=== PATIENT | male | born 1950 | race Caucasian/White ===

== ENCOUNTER 2016-08-19 20:22 | Inpatient (IN) | payer OTHER ==
[2016-08-19] MEDS ORDERED: ASPIRIN PO STA (20:24)
[2016-08-19] MEDS ORDERED: NITROGLYCERIN SL PRN (20:24)
[2016-08-19] MEDS ORDERED: ALBUTEROL NEB INH ONE ×2 (20:37→21:49)
[2016-08-19] MEDS ORDERED: DUONEB (A & A) INH ONE (20:37)
[2016-08-19] MEDS ORDERED: SOLU-MEDROL IV ONE (20:38)
--- NOTE | 2016-08-19 20:38 | PROVIDER DOCUMENTATION ---
HPI-Respiratory General <Ashutosh Caicedo - Last Filed: 08/19/16 21:50> - General Source: patient - History of Present Illness-Resp Severity in ED: reports: severe Onset/Duration: reports: 4 days ago Timing: reports: still present, getting worse Cough Quality/Degree: reports: moderate, productive cough, sputum Episode Frequency: chronic episodes Associated Symptoms: reports: cough, nasal congestion, nasal drainage, shortness of breath, short of breath, wheezing, other (loss of appetite). denies: flu-like symptoms, hurts to breathe, muscle/bodyaches <Yonny Mcdonald - Last Filed: 08/21/16 01:45> - General Chief Complaint: Shortness of Breath Stated Complaint: SOB Time Seen by Provider: 08/19/16 20:37 Allergies/Adverse Reactions: Patient Allergies Allergy/AdvReac Type Severity Reaction Status Date / Time No Known Allergies Allergy Verified 08/19/16 21:11 Home Medications: Home Medication List Medication Instructions Recorded Confirmed Last Taken Type Albuterol Sulfate Inhaler 2 puff INH Q6H PRN PRN 08/19/16 08/19/16 08/19/16 History [Ventolin Hfa] Montelukast Sodium [Singulair] 10 mg PO DAILY 08/19/16 08/19/16 08/19/16 History - History of Present Illness-Resp Nature of Presenting Problem: Pt is a 66 yom "pink puffer" who presents to ER with CC of shortness of breath. Pt has hx of COPD emphysema and reports that he has had difficulty breathing x3- 4 days. Pt reports that he is also having a moderately productive cough and nasal congestion. Pt is on 3-4L O2 at home, "depending on how I feel." ( Yonny Mcdonald) Review of Systems - Adult - REVIEW OF SYSTEMS - ADULT Constitutional: reports: fatique. denies: chills, fever, night sweats Eyes: reports: no symptoms reported Ears, Nose, Mouth & Throat: reports: no symptoms reported Cardiovascular: denies: chest pain, heart murmur, irregular heart rate, palpitations, poor circulation, syncope Respiratory: reports: chronic cough, cough, dyspnea on exertion, excessive sputum production, shortness of breath, wheezing. denies: hemoptysis, pleurisy Gastrointestinal: reports: poor appetite. denies: abdominal pain, constipation , diarrhea, nausea, vomiting Genitourinary: reports: no symptoms reported Musculoskeletal: reports: no symptoms reported Integumentary: reports: no symptoms reported Neurological: reports: no symptoms reported Psychiatric: reports: no symptoms reported Endocrine: reports: no symptoms reported Hematologic/Lymphatic: reports: no symptoms reported Allergic/Immunologic: reports: no symptoms reported All Other Systems: Reviewed and Negative <Yonny Mcdonald - Last Filed: 08/21/16 01:45> Past History - Adult - PAST MEDICAL HISTORY-ADULT Review of Records: reports: Nursing Assessment Review, Medications Reviewed Respiratory: reports: COPD (emphysema) - IMMUNIZATION STATUS Childhood Immunizations: See Nurse Assessment Flu Vaccine: See Nurse Assessment <Yonny Mcdonald - Last Filed: 08/21/16 01:45> Physical Exam-General - PHYSICAL EXAM-ADULT Initial Vital Signs Reviewed: Yes - CONSTITUTIONAL General Appearance: appears well, alert, moderate distress, cachetic, thin, anxious. negative: obese, obtunded, combative - RESPIRATORY Respiratory: chest non-tender, wheezing. negative: lungs clear, normal breath sounds - CARDIOVASCULAR Cardiovascular: normal peripheral pulses, tachycardia - NEUROLOGIC Neurologic: grossly normal, no motor/sensory deficits. negative: facial droop, focal weakness, motor weakness, sensory deficit - PSYCHIATRIC Psych/Mental Status: normal thought content, normal thought process, oriented x 3, anxious <Yonny Mcdonald - Last Filed: 08/21/16 01:45> Progress <Ashutosh Caicedo - Last Filed: 08/19/16 21:50> - REASSESSMENT Reassessment #1 Time Reassessed: 21:48 Status: other (Dr. Caicedo discussed result of pt's X-ray and POC to be another breathing treatment and amdit to hospitalist. Pt verbally acknowledged Dr. Harsha padilla's decision.) - XRAY 1 XRAY: Bilateral XRAY Study: Chest Impression: See EMR Report XRAY Interpretation: Pulmonary fibrosis; Possible RLL infiltrate? - CONSULTS/PCP/HOSPITALIST Notification #1 *Consult/PCP/Hospitalist*: Dr. Dan (Hospitalist) Time Discussed: 21:57 Consult Disposition: Admit <Yonny Mcdonald - Last Filed: 08/21/16 01:45> - PLAN OF CARE/RESULTS Progress/Plan/Lab Results: POC: ABG/IV 9885: Pt reports feeling a little better; Dr. Quang fuentes hospitalist; Vital Signs - 24 hr 08/19/16 08/19/16 20:36 21:02 Temperature 97.9 F Pulse Rate 116 H 116 H Respiratory 26 H 22 Rate Blood Pressure 118/64 O2 Sat by Pulse 100 Oximetry Orders Category Date Time Status Cardiac Monitoring DIRECTED Care 08/19/16 20:24 Active Saline Loc NOW Care 08/19/16 20:24 Active CHEST-1 VIEW [RAD] Stat Exams 08/19/16 20:24 Taken ABG [RESP] Routine Lab 08/19/16 21:00 Completed BLOOD CULTURE [BLDCUL] Stat Lab 08/19/16 20:45 Results CBC WITH ELECTRONIC DIFF [HEME] Stat Lab 08/19/16 20:45 Completed CK PROFILE [SP CHEM] Stat Lab 08/19/16 20:45 Completed COMPREHENSIVE METABOLIC PANEL [CHEM] Stat Lab 08/19/16 20:45 Completed D-DIMER [CHEM] Stat Lab 08/19/16 20:45 Completed LACTATE, PLASMA [CHEM] Stat Lab 08/19/16 20:45 Completed MAGNESIUM [CHEM] Stat Lab 08/19/16 20:45 Completed PRO B-NATRIURETIC PEPTIDE Stat Lab 08/19/16 20:45 Completed PROTIME WITH INR [COAG] Stat Lab 08/19/16 20:45 Completed PTT [COAG] Stat Lab 08/19/16 20:45 Completed TROPONIN T Stat Lab 08/19/16 20:45 Completed Albuterol 2.5MG/Ipratrop 0.5MG [Duoneb (A & A)] Med 08/19/16 20:37 Discontinued 3 ml INH NOW ONE Albuterol [Albuterol Neb] Med 08/19/16 20:37 Discontinued 5 mg INH NOW ONE Albuterol [Albuterol Neb] Med 08/19/16 21:49 Once 5 mg INH NOW ONE Aspirin Med 08/19/16 20:24 Discontinued 325 mg PO STAT STA Azithromycin 500 mg/Ns [Zithromax 500 mg/Ns] 250 ml Med 08/19/16 21:41 Active IV NOW CefTRIAXONE 1 GM/NS [Rocephin 1 gm/Ns] 50 ml Med 08/19/16 20:39 Discontinued IV NOW Methylprednisolone Sod Succ [Solu-Medrol] Med 08/19/16 20:38 Discontinued 125 mg IV NOW ONE Nitroglycerin Sl [Nitroglycerin] Med 08/19/16 20:24 Active 0.4 mg SL Q5M PRN PRN Aerosol Treatments Routine Oth 08/19/16 20:38 Completed Aerosol Treatments Routine Oth 08/19/16 21:49 Ordered Aerosol Treatments Stat Oth 08/19/16 20:38 Completed Aerosol Treatments Stat Oth 08/19/16 21:49 Ordered EKG [EKG] Stat Ther 08/19/16 20:24 Ordered Laboratory Tests 08/19/16 08/19/16 08/19/16 20:45 20:45 20:45 WBC 10.69 RBC 5.20 Hgb 14.9 Hct 43.7 MCV 84.0 MCH 28.7 MCHC 34.1 RDW Std Deviation 14.6 H Plt Count 349 MPV 9.6 Immature Gran % (Auto) 0.3 Neut % (Auto) 72.3 Lymph % (Auto) 7.8 L [place] % (Auto) 19.3 H Eos % (Auto) 0.1 Baso % (Auto) 0.2 Immature Gran # (Auto) 0.03 Neut # (Auto) 7.74 H Lymph # (Auto) 0.83 L [place] # (Auto) 2.06 H Eos # (Auto) 0.01 Baso # (Auto) 0.02 PT INR PTT (Actin FS) D-Dimer 0.29 Specimen Type Sample Site pH pCO2 pO2 HCO3 Base Excess Oxyhemoglobin ABG O2 Sat (Calculated) ABG O2 Saturation ABG Carboxyhemoglobin ABG Methemoglobin Jake Test A-a O2 Difference Total Hemoglobin Lactate Liter Flow Blood Gas Modality FiO2 % Sodium 135 L Potassium 3.5 Chloride 94 L Carbon Dioxide 23 L Anion Gap 18 BUN 5 L Creatinine 0.8 Estimated GFR/1.73 m2 > 60 BUN/Creatinine Ratio 6 Glucose 76 Calculated Osmolality 266 Calcium 9.1 Magnesium 1.9 Total Bilirubin 0.32 AST 20 ALT 14 Alkaline Phosphatase 82 Creatine Kinase 93 Troponin T Zev-U-Oqxdeaooxuw Pept Total Protein 7.3 Albumin 4.0 Globulin 3.3 Albumin/Globulin Ratio 1.2 Plasma Lactate 08/19/16 08/19/16 08/19/16 20:45 20:45 20:45 WBC RBC Hgb Hct MCV MCH MCHC RDW Std Deviation Plt Count MPV Immature Gran % (Auto) Neut % (Auto) Lymph % (Auto) [place] % (Auto) Eos % (Auto) Baso % (Auto) Immature Gran # (Auto) Neut # (Auto) Lymph # (Auto) [place] # (Auto) Eos # (Auto) Baso # (Auto) PT 10.5 INR 0.99 PTT (Actin FS) 28.1 D-Dimer Specimen Type Sample Site pH pCO2 pO2 HCO3 Base Excess Oxyhemoglobin ABG O2 Sat (Calculated) ABG O2 Saturation ABG Carboxyhemoglobin ABG Methemoglobin Jake Test A-a O2 Difference Total Hemoglobin Lactate Liter Flow Blood Gas Modality FiO2 % Sodium Potassium Chloride Carbon Dioxide Anion Gap BUN Creatinine Estimated GFR/1.73 m2 BUN/Creatinine Ratio Glucose Calculated Osmolality Calcium Magnesium Total Bilirubin AST ALT Alkaline Phosphatase Creatine Kinase Troponin T < 0.010 Siy-[id number]-Fnvfmdmzpok Pept 974 H Total Protein Albumin Globulin Albumin/Globulin Ratio Plasma Lactate 08/19/16 08/19/16 20:45 21:00 WBC RBC Hgb Hct MCV MCH MCHC RDW Std Deviation Plt Count MPV Immature Gran % (Auto) Neut % (Auto) Lymph % (Auto) [place] % (Auto) Eos % (Auto) Baso % (Auto) Immature Gran # (Auto) Neut # (Auto) Lymph # (Auto) [place] # (Auto) Eos # (Auto) Baso # (Auto) PT INR PTT (Actin FS) D-Dimer Specimen Type ARTERIAL Sample Site R RADIAL pH 7.45 pCO2 35 pO2 90 HCO3 25.5 Base Excess 0.8 Oxyhemoglobin 95.6 ABG O2 Sat (Calculated) 20.5 ABG O2 Saturation 99.5 ABG Carboxyhemoglobin 2.70 H ABG Methemoglobin 1.2 Jake Test YES A-a O2 Difference 151.0 Total Hemoglobin 15.2 Lactate 1.60 Liter Flow 5.0 Blood Gas Modality CANNULA FiO2 % 40.0 Sodium Potassium Chloride Carbon Dioxide Anion Gap BUN Creatinine Estimated GFR/1.73 m2 BUN/Creatinine Ratio Glucose Calculated Osmolality Calcium Magnesium Total Bilirubin AST ALT Alkaline Phosphatase Creatine Kinase Troponin T Kdq-B-Srlanuzzawo Pept Total Protein Albumin Globulin Albumin/Globulin Ratio Plasma Lactate 2.2 (Yonny Mcdonald) Departure - Departure Time of Disposition Order: 21:51 Certified Medical Emergency: Emergent <Ashutosh Caicedo - Last Filed: 08/19/16 21:50> - Departure Time of Disposition Order: 23:06 Certified Medical Emergency: Emergent <Yonny Mcdonald - Last Filed: 08/21/16 01:45> - Departure DIAGNOSIS: Acute exacerbation of COPD with asthma Pneumonia Qualifiers: Pneumonia type: due to unspecified organism Laterality: right Lung location: lower lobe of lung Qualified Code(s): J18.1 - Lobar pneumonia, unspecified organism Disposition: ADMITTED INPATIENT 09 Condition: Fair Attestation - Scribe Verification/Attestation Scribe:: Yonny Mcdonald Acting as Scribe for:: Ashutosh Caicedo Scribe documention review:: This chart was documented by a scribe and accurately reflects the service the provider performed and the decisions made by the provider. <Yonny Mcdonald - Last Filed: 08/21/16 01:45> Physician Attestation
[2016-08-19] MEDS ORDERED: ROCEPHIN 1 GM/NS 50 ML IV ONE (20:39)
[2016-08-19 20:57] LABS: MANUAL DIFF NEEDED? NO
[2016-08-19 21:03] LABS: BASO% 0.2 % (0.0-0.8); EOS# 0.01 X1000 (0.0-0.7); EOS% 0.1 % (0.0-10.0); HEMATOCRIT 43.7 % (42.0-52.0); HEMOGLOBIN 14.9 g/dL (14.0-18.0); IMM GRAN# 0.03 X1000 (0.0-0.04); IMM GRAN% 0.3 % (0.0-0.5); LYMPH# 0.83 X1000 (1.2-3.4); LYMPH% 7.8 % (20.5-51.1); MCH 28.7 PG (27-31); MCHC 34.1 g/dL (33-37); MONO# 2.06 X1000 (0.11-0.59); MONO% 19.3 % (1.7-9.3); MPV 9.6 FL (7.4-10.4); NEUT% 72.3 % (42.2-75.2); PLT 349 X1000 (130-400)
[2016-08-19 21:09] LABS: ALLEN TEST YES; BE 0.8 mmoll (-3.0-3.0); BLOOD TYPE ARTERIAL; DRAW SITE R RADIAL; METHB 1.2 % (0.0-1.5); O2(CT) 20.5 mL/dL (15.0-23.0); PCO2(98.6) 35 mmHg (35-45); PO2(98.6) 90 mmHg (60-100); SAMPLE BLOOD; SAO2 99.5 % (95.0-100.0); THB 15.2 g/dL (11.5-17.4); pH(98.6) 7.45 (7.35-7.45)
[2016-08-19 21:10] LABS: INR 0.99; PROTIME 10.5 Seconds (9.2-11.7); PTT 28.1 Seconds (22.0-36.0)
[2016-08-19 21:10] LABS: MODALITY CANNULA
[2016-08-19 21:24] LABS: AGAP 18; ALKALINE PHOSPHATASE 82 U/L (32-122); BUN 5 mg/dL (8-22); CALCIUM 9.1 mg/dL (8.8-10.2); CHLORIDE 94 mmol/L (98-107); CK PROFILE 93 U/L (24-204); COSMO 266; GOT 20 U/L (10-34); GPT 14 U/L (10-44); MAGNESIUM 1.9 mg/dL (1.5-2.7); POTASSIUM 3.5 mmol/L (3.5-5.1); SODIUM 135 mmol/L (136-145); TCO2 23 mmol/L (25-35); TOTAL BILIRUBIN 0.32 mg/dL (0.20-1.00); TOTAL PROTEIN 7.3 g/dL (6.3-8.3)
[2016-08-19] MEDS ORDERED: ZITHROMAX 500 MG/NS 250 ML IV ONE (21:41)
[2016-08-19] MEDS ORDERED: NICODERM PATCH TD ONE (21:49)
--- NOTE | 2016-08-19 22:22 | ED EKG INTERP ---
EKG Interpretation - EKG Time of EKG reading by physician:: 20:33 EKG Read and Signed by:: Ashutosh Caicedo EKG Interpretation (*Must complete 3 of following elements*): Abnormal (Low voltage QRS; Cannot rule out Anteroseptal infarct, age undetermined; T wave abnormality, consider inferior ischemia; Prolonged QT) Rate: 115 Rhythm: Sinus tachycardia with premature supraventricular complexes Attestation - Scribe Verification/Attestation Scribe:: Yonny Mcdonald Acting as Scribe for:: Ashutosh Caicedo Scribe documention review:: This chart was documented by a scribe and accurately reflects the service the provider performed and the decisions made by the provider.
--- NOTE | 2016-08-19 22:50 | HISTORY AND PHYSICAL ---
PRIMARY CARE PHYSICIAN: Keith Zepeda MD CHIEF COMPLAINT: Shortness of breath. HISTORY OF PRESENT ILLNESS: This is a 66-year-old male with past medical history of advanced COPD, who presented to the Emergency Department complaining of shortness of breath. He reports that he noticed this problem for the last 3-4 days. The patient denies any fever or chills. He reports also productive cough whitish and nasal congestion as well. Patient is on home oxygen 3-4 L at home. He was using his breathing at home, but because the shortness of breath was still present, he decided to come to the emergency department. He is being admitted to the hospital for further treatment. PAST MEDICAL HISTORY: 1. COPD. 2. Active smoker. PAST SURGICAL HISTORY: None. ALLERGIES: No known drug allergies. SOCIAL HISTORY: He reports still smoking approximately 1 pack per day but he was not able to smoke for the last 2 days. So, patient reports that he is going to quit. He denies drinking alcohol or using illicit drugs. FAMILY HISTORY: Noncontributory. PHYSICAL EXAMINATION: VITALS: Temperature 97.9, heart rate 115, respiratory rate 30, blood pressure 107/67, O2 saturation 94% on 4 L nasal cannula. GENERAL EXAMINATION: This is a chronically ill-looking, and in mild respiratory distress 66-year- old, male, lying in bed. HEENT: Head is normocephalic, atraumatic. Anicteric sclerae and pale conjunctivae. Mucous membranes moist. Pupils equal, round, and reactive to light and accommodation. NECK: Supple. No JVD noted. No carotid bruits. No lymphadenopathy. No thyromegaly. CARDIOVASCULAR: S1, S2 heard. Tachycardic. No murmurs, gallops, or rubs. Regular rate and rhythm. RESPIRATORY: Decreased breath sounds globally with wheezing all over pulmonary lowe. Patient is using some accessory muscles. ABDOMEN: Soft, nontender to palpation. Bowel sounds present. No organomegaly. EXTREMITIES: No clubbing, cyanosis, or edema. Peripheral pulses present in both legs. NEUROLOGICAL: Patient alert and oriented x3. Able to move 4 extremities. Cranial nerves II-XII are grossly normal. LABORATORY DATA: The CBC, ABG was completely normal as well as the BMP as well. ASSESSMENT AND PLAN: 1. Chronic obstructive pulmonary disease exacerbation. 2. Pneumonia suspected. PLAN: 1. Patient is going to be admitted to the hospital for chronic obstructive pulmonary disease exacerbation most probably likely to community-acquired pneumonia. Just to have a better visualization of the lung parenchyma, we are going to order a computed tomography of the chest. In any case, we are going to start him on intravenous antibiotics, in this case, ceftriaxone and azithromycin. We will provide also breathing treatment with DuoNebs every 4 hours as schedule and Solu-Medrol 40 mg intravenously q.8 hours as well. Also we are going to start this patient considering his advanced chronic obstructive pulmonary disease on Spiriva 1 inhalation daily. 2. Tomorrow his primary care doctor, Keith Zepeda MD will resume care.
[2016-08-19] MEDS ORDERED: NS 1,000 ML IV SCH (23:50)
[2016-08-19] MEDS ORDERED: DUONEB (A & A) INH PRN (23:50)
[2016-08-19] MEDS ORDERED: ZOFRAN IV PRN (23:50)
[2016-08-20] MEDS: DUONEB (A & A) INH SCH ×7 (00:37→22:49)
[2016-08-20] MEDS: LOVENOX SUBQ SCH ×2 (00:42→20:53)
[2016-08-20 05:04] LABS: ALLEN TEST YES; BE -2.2 mmoll (-3.0-3.0); BLOOD TYPE ARTERIAL; DRAW SITE R RADIAL; METHB 1.4 % (0.0-1.5); O2(CT) 18.7 mL/dL (15.0-23.0); PCO2(98.6) 37 mmHg (35-45); PO2(98.6) 131 mmHg (60-100); SAMPLE BLOOD; SAO2 99.1 % (95.0-100.0); THB 13.7 g/dL (11.5-17.4); pH(98.6) 7.39 (7.35-7.45)
[2016-08-20 05:05] LABS: MODALITY CANNULA
--- NOTE | 2016-08-20 06:18 | Diag Imaging Result Document ---
PROCEDURE NAME: CT THORAX W/CONTRAST - 08/19/2016 CT CHEST WITH INTRAVENOUS CONTRAST: FINDINGS: No pleural effusions. No thoracic aortic aneurysm or dissection. No cardiomegaly. Chronic coronary artery calcifications in the left anterior descending artery. The pulmonary arteries are distended. Normal opacification of the pulmonary arteries and the proximal branches. Slightly prominent mediastinal and right hilar lymph nodes. There is severe emphysema. Increased markings in the apices believed to be fibrosis. Likely fibrosis or atelectasis posteriorly and laterally in the right middle lobe although there could be a tiny underlying infiltrate. No other infiltrates. IMPRESSION: 1. Severe emphysema. 2. Pulmonary arterial hypertension. 3. Likely fibrosis and atelectasis rather than pneumonia. 4. Slightly prominent mediastinal and right hilar lymph nodes. 5. Limited images through the upper abdomen reveal fatty infiltration of the liver. A preliminary report was given at 12 o'clock
[2016-08-20] MEDS: PRILOSEC PO SCH (06:26)
[2016-08-20 07:19] LABS: EOS# 0.03 X1000 (0.0-0.7); EOS% 0.4 % (0.0-10.0); HEMOGLOBIN 14.1 g/dL (14.0-18.0); LYMPH# 0.28 X1000 (1.2-3.4); LYMPH% 3.9 % (20.5-51.1); MANUAL DIFF NEEDED? YES; MCH 28.5 PG (27-31); MCHC 33.6 g/dL (33-37); MCV 84.8 FL (81-99); MONO# 0.21 X1000 (0.11-0.59); MONO% 2.9 % (1.7-9.3); NEUT% 92.8 % (42.2-75.2); PLT 321 X1000 (130-400); RBC 4.95 XMIL (4.7-6.1)
[2016-08-20 07:25] LABS: AGAP 16; BUN 9 mg/dL (8-22); CHLORIDE 100 mmol/L (98-107); COSMO 281; SODIUM 140 mmol/L (136-145); TCO2 24 mmol/L (25-35)
--- NOTE | 2016-08-20 07:41 | EKG Report ---
Test Performed on : 08/19/2016 8:33:13 PM Test Reason : Ordered Cancelled/Re-Ordered/CP Blood Pressure : / mmHG Vent. Rate : 115 BPM Atrial Rate : 115 BPM P-R Int : 124 ms QRS Dur : 080 ms QT Int : 486 ms P-R-T Axes : 099 -01 268 degrees QTc Int : 672 ms Sinus tachycardia. with premature supraventricular complexes. Low voltage QRS Cannot rule out Anteroseptal infarct (cited on or before 15-JUL-2016) T wave abnormality, consider inferior ischemia Prolonged QT Abnormal ECG When compared with ECG of 15-JUL-2016 18:37, premature supraventricular complexes. are now present ST now depressed in Inferior leads T wave inversion now evident in Inferior leads Unconfirmed Result
[2016-08-20 08:42] LABS: LYMPHS 4 % (21-51); MONO 2 % (1-9)
--- NOTE | 2016-08-20 09:20 | Diag Imaging Result Document ---
PROCEDURE NAME: CHEST-1 VIEW - 08/19/2016 PORTABLE CHEST X-RAY, 08/19/2016: COMPARISON: 07/15/2016. FINDINGS: Stable severe COPD with pulmonary scarring. No obvious infiltrates. Heart size is top normal. IMPRESSION: Severe COPD with pulmonary scarring.
[2016-08-20] MEDS: SINGULAIR PO SCH (09:42)
[2016-08-20] MEDS: ROCEPHIN 1 GM/NS 50 ML IV SCH (20:52)
[2016-08-20] MEDS ORDERED: ZITHROMAX 500 MG/NS 250 ML IV SCH (23:00)
[2016-08-20] MEDS: ZITHROMAX 500 MG/NS 250 ML IV SCH (23:08)
[2016-08-21] MEDS: LOVENOX SUBQ SCH ×3 (00:13→22:45)
[2016-08-21] MEDS: DUONEB (A & A) INH SCH ×6 (03:27→23:21)
[2016-08-21] MEDS: SOLU-MEDROL IV SCH ×3 (06:00→21:18)
[2016-08-21] MEDS: PRILOSEC PO SCH (06:00)
[2016-08-21 07:22] LABS: MANUAL DIFF NEEDED? NO
[2016-08-21 07:54] LABS: BASO% 0.2 % (0.0-0.8); EOS# 0.02 X1000 (0.0-0.7); EOS% 0.2 % (0.0-10.0); HEMATOCRIT 42.3 % (42.0-52.0); HEMOGLOBIN 13.9 g/dL (14.0-18.0); IMM GRAN# 0.02 X1000 (0.0-0.04); IMM GRAN% 0.2 % (0.0-0.5); LYMPH# 1.64 X1000 (1.2-3.4); LYMPH% 14.5 % (20.5-51.1); MCH 27.9 PG (27-31); MCHC 32.9 g/dL (33-37); MCV 84.8 FL (81-99); MONO# 1.79 X1000 (0.11-0.59); MONO% 15.9 % (1.7-9.3); MPV 10.1 FL (7.4-10.4); PLT 328 X1000 (130-400); RBC 4.99 XMIL (4.7-6.1)
[2016-08-21 07:56] LABS: AGAP 15; BUN 10 mg/dL (8-22); CALCIUM 8.3 mg/dL (8.8-10.2); CHLORIDE 103 mmol/L (98-107); CK PROFILE 146 U/L (24-204); COSMO 281; POTASSIUM 3.3 mmol/L (3.5-5.1); SODIUM 141 mmol/L (136-145); TCO2 23 mmol/L (25-35)
[2016-08-21] MEDS: SPIRIVA INH SCH (07:59)
[2016-08-21] MEDS ORDERED: KLOR-CON PO ONE (08:17)
[2016-08-21] MEDS: SINGULAIR PO SCH (10:24)
[2016-08-21] MEDS: BREO ELLIPTA 100/25 MCG INH INH SCH (11:34)
--- NOTE | 2016-08-21 13:42 | EKG Report ---
Test Performed on : 08/21/2016 10:00:17 AM Test Reason : cp Blood Pressure : / mmHG Vent. Rate : 095 BPM Atrial Rate : 095 BPM P-R Int : 132 ms QRS Dur : 092 ms QT Int : 322 ms P-R-T Axes : 075 022 086 degrees QTc Int : 404 ms Sinus rhythm. with occasional premature ventricular complexes. and premature atrial complexes. Low voltage QRS Cannot rule out Anteroseptal infarct (cited on or before 15-JUL-2016) T wave abnormality, consider inferior ischemia Abnormal ECG When compared with ECG of 19-AUG-2016 20:33, premature ventricular complexes. are now present ST no longer depressed in Inferior leads Non-specific change in ST segment in Anterior leads T wave inversion now evident in Anterior leads Confirmed by Desmond Navarrete MD ([id number]) on 08/21/2016 9:56:36 PM
[2016-08-21] MEDS ORDERED: AYR NASAL SPRAY NAS PRN (20:53)
[2016-08-21] MEDS: ROCEPHIN 1 GM/NS 50 ML IV SCH (21:18)
[2016-08-21] MEDS: ZITHROMAX 500 MG/NS 250 ML IV SCH (22:44)
[2016-08-22] MEDS: DUONEB (A & A) INH SCH ×6 (03:33→23:43)
[2016-08-22] MEDS: SOLU-MEDROL IV SCH ×3 (05:04→20:03)
[2016-08-22] MEDS: PRILOSEC PO SCH (07:45)
[2016-08-22] MEDS: BREO ELLIPTA 100/25 MCG INH INH SCH (07:59)
[2016-08-22 08:00] LABS: AGAP 12; BUN 8 mg/dL (8-22); CALCIUM 8.6 mg/dL (8.8-10.2); CHLORIDE 102 mmol/L (98-107); COSMO 276; POTASSIUM 4.1 mmol/L (3.5-5.1); SODIUM 138 mmol/L (136-145); TCO2 24 mmol/L (25-35)
[2016-08-22] MEDS: SPIRIVA INH SCH (08:00)
[2016-08-22] MEDS: SINGULAIR PO SCH (08:57)
[2016-08-22] MEDS: ROCEPHIN 1 GM/NS 50 ML IV SCH (20:05)
[2016-08-23] MEDS: LOVENOX SUBQ SCH ×2 (01:36→22:59)
[2016-08-23] MEDS: ZITHROMAX 500 MG/NS 250 ML IV SCH ×2 (01:36→22:58)
[2016-08-23] MEDS: DUONEB (A & A) INH SCH ×6 (03:20→22:55)
[2016-08-23] MEDS: SOLU-MEDROL IV SCH ×3 (04:30→21:15)
[2016-08-23] MEDS: PRILOSEC PO SCH (06:31)
[2016-08-23] MEDS ORDERED: ALBUTEROL NEB ONE (07:48)
[2016-08-23] MEDS: SINGULAIR PO SCH (09:20)
[2016-08-23] MEDS: BREO ELLIPTA 100/25 MCG INH INH SCH (11:45)
[2016-08-23] MEDS: SPIRIVA INH SCH (11:46)
[2016-08-23] MEDS: ROCEPHIN 1 GM/NS 50 ML IV SCH (21:14)
[2016-08-24] MEDS: DUONEB (A & A) INH SCH ×4 (03:22→16:03)
[2016-08-24] MEDS: SOLU-MEDROL IV SCH ×2 (05:27→12:27)
[2016-08-24] MEDS: PRILOSEC PO SCH (06:13)
[2016-08-24] MEDS: BREO ELLIPTA 100/25 MCG INH INH SCH (07:35)
[2016-08-24] MEDS: SPIRIVA INH SCH (07:35)
[2016-08-24 08:16] VITALS: BP 115/73
[2016-08-24] MEDS: SINGULAIR PO SCH (08:40)
[2016-08-24] MEDS ORDERED: FLUZONE QUAD 2016-2017 SYRINGE IM ONE (08:56)
[2016-08-24] MEDS ORDERED: PNEUMOVAX 23 IM ONE (08:56)
--- NOTE | 2016-08-25 11:04 | DISCHARGE SUMMARY ---
ADMISSION DATE: 08/19/2016 DISCHARGE DATE: 08/24/2016 DISCHARGING DIAGNOSES: 1. Acute Chronic obstructive pulmonary disease exacerbation. 2. History of coronary artery disease. 3. History of noncompliance. HISTORY: Please see the H and P that was done by hospitalist. In brief he is a 66-year-old, white gentleman with severe COPD. Recent pulmonary function tests, FEV1/FVC 0.58 predicted, FEV1 is 36% with maximum ventilations report is only 28%. Dependent on oxygen, on nebulizers and also history of CAD with stents x2. Came in with chest pain, shortness of breath, and wheezing. The patient was started on oxygen, bronchodilators, IV steroids, IV antibiotics. EKG as a part of the chest pain sinus rhythm with Q-waves in the anterior leads and PVCs. Nothing acute. During this hospital admission patient has a CT chest showed severe COPD, pulmonary artery hypertension, fibrosis, atelectasis and fatty liver. Pulmonary function tests consistent COPD. LABS: During this admission as follows: White cell count 11, hematocrit 42, platelet count 328,000. ABG: PH is 7.39, pCO2 37, PO2 of 90 on 40%. SMA 7 is normal. Cardiac enzymes were normal. ProBNP 700. At the time of discharge, patient is stable. Discharged home with the following instructions. Flu vaccine 08/24/2016, pneumonia 08/24/2016. Ventolin HFA q.6 as needed, Singulair 10 mg daily. Breo 1 puff daily, Prilosec 40 daily, nasal spray as needed, Spiriva 1 puff at nighttime, Levaquin 500 daily, Medrol Dosepak and follow up in my office next week.
== END 2016-08-24 16:28 | disposition home or self-care (01) | DRG 191 ==
LOC: ED 20:22 → 3N 23:06
PROVIDERS: ADMIT Internal Medicine; ATTEND Internal Medicine
DX: J44.1 Chronic obstructive pulmonary disease with (acute) exacerbation (principal); R64 Cachexia; I27.2 Other secondary pulmonary hypertension; Z99.81 Dependence on supplemental oxygen; J84.10 Pulmonary fibrosis, unspecified; J98.11 Atelectasis; K76.0 Fatty (change of) liver, not elsewhere classified; F17.210 Nicotine dependence, cigarettes, uncomplicated; J45.909 Unspecified asthma, uncomplicated; R94.31 Abnormal electrocardiogram [ECG] [EKG]; I25.10 Atherosclerotic heart disease of native coronary artery without angina pectoris; Z91.19 Patient's noncompliance with other medical treatment and regimen; Z95.5 Presence of coronary angioplasty implant and graft; Z23 Encounter for immunization; Z79.899 Other long term (current) drug therapy
CPT/HCPCS: 71010; 71260; 80048; 80053; 82550; 82805; 83605; 83735; 83880; 84484; 85025; 85379; 85610; 85730; 87040; 90732; 93005; 93010; 94060; 94375; 94640; 94729; 94760; 94761; 96365; 96367; 96375; J0456; J0696; J1650; J2920; J2930; J7030; Q2038; Q9967

== ENCOUNTER 2017-03-03 20:28 | Inpatient (IN) ==
[2017-03-03] MEDS ORDERED: CARDIZEM IV ONE ×2 (20:40→20:50)
[2017-03-03] MEDS ORDERED: NS 2,000 ML ONE (20:40)
[2017-03-03 20:59] LABS: MANUAL DIFF NEEDED? NO
[2017-03-03] MEDS ORDERED: VERSED ONE (21:03)
[2017-03-03 21:07] LABS: BASO% 0.1 % (0.0-0.8); EOS# 0.04 X1000 (0.0-0.7); EOS% 0.2 % (0.0-10.0); HEMATOCRIT 40.4 % (42.0-52.0); HEMOGLOBIN 13.6 g/dL (14.0-18.0); IMM GRAN# 0.07 X1000 (0.0-0.04); IMM GRAN% 0.4 % (0.0-0.5); LYMPH# 3.64 X1000 (1.2-3.4); LYMPH% 19.3 % (20.5-51.1); MCH 28.5 PG (27-31); MCHC 33.7 g/dL (33-37); MCV 84.5 FL (81-99); MONO# 2.85 X1000 (0.11-0.59); MONO% 15.1 % (1.7-9.3); MPV 9.6 FL (7.4-10.4); NEUT% 64.9 % (42.2-75.2); PLT 241 X1000 (130-400); RBC 4.78 XMIL (4.7-6.1)
[2017-03-03] MEDS: VERSED IV ONE ×3 (21:09→21:13)
[2017-03-03 21:15] LABS: INR 0.93; PROTIME 9.7 Seconds (9.2-11.7); PTT 23.6 Seconds (22.0-36.0)
[2017-03-03 21:25] LABS: AGAP 12; ALBUMIN 3.5 g/dL (3.5-5.0); ALKALINE PHOSPHATASE 60 U/L (32-122); BUN 18 mg/dL (8-22); CALCIUM 7.5 mg/dL (8.8-10.2); CHLORIDE 103 mmol/L (98-107); CK PROFILE 99 U/L (24-204); COSMO 276; GOT 18 U/L (10-34); GPT 21 U/L (10-44); POTASSIUM 3.7 mmol/L (3.5-5.1); SODIUM 137 mmol/L (136-145); TCO2 22 mmol/L (25-35); TOTAL BILIRUBIN 0.23 mg/dL (0.20-1.00); TOTAL PROTEIN 5.9 g/dL (6.3-8.3)
[2017-03-03] MEDS ORDERED: NS 1,000 ML IV ONE (21:32)
[2017-03-03] MEDS ORDERED: NS 2,000 ML IV ONE (21:33)
[2017-03-03] MEDS ORDERED: CARDIZEM 100 MG/NS 100 MG/100 ML IVPB IV SCH (22:00)
--- NOTE | 2017-03-03 22:06 | ED EKG INTERP ---
This chart was entered by Taylor Mclaughlin Scribe, acting as scribe for Cruz Landers MD. EKG Interpretation - EKG Time of EKG reading by physician:: 20:21 EKG Read and Signed by:: Cruz Landers EKG Interpretation (*Must complete 3 of following elements*): Abnormal Rate: 180 Rhythm: a-fib with RVR [place]: normal QRS: normal ND Interval: normal ST Wave: normal Comments: anteroseptal infarct, age undetermined - EKG # 2 Time of EKG reading by physician:: 21:09 EKG Read and Signed by:: Cruz Landers EKG Interpretation (*Must complete 3 of following elements*): Abnormal Rate: 96 Rhythm: sinus rhythm with premature supraventricular complexes [place]: normal QRS: other (low voltage) ND Interval: normal ST Wave: normal Comments: septal infarct, age undetermined Attestation - Physician/ KELLEE Attestation Patient care was provided by Advanced Practice Provider:: No The physician spent face to face time with patient:: Yes Advanced Practice Provider documentation review:: Supervising physician onsite and consulted in the evaluation and care of this patient. The physician did have a face to face encounter with the patient. This chart was documented by the indicated scribe, (Taylor Mclaughlin Scribe) and accurately reflects the services I performed and decisions made by me, Cruz Landers MD, as attested by the provider's signature.
[2017-03-03] MEDS ORDERED: LANOXIN IV ONE (22:08)
--- NOTE | 2017-03-03 22:16 | PROVIDER DOCUMENTATION ---
This chart was entered by Taylor Mclaughlin Scribe, acting as scribe for Cruz Landers MD. HPI-Cardiac General - General Chief Complaint: Shortness of Breath Stated Complaint: sob Time Seen by Provider: 03/03/17 21:24 Source: patient Allergies/Adverse Reactions: Patient Allergies Allergy/AdvReac Type Severity Reaction Status Date / Time No Known Allergies Allergy Verified 03/03/17 20:38 Home Medications: Home Medication List Medication Instructions Recorded Confirmed Last Taken Type Albuterol Sulfate Inhaler 2 puff INH Q6H PRN PRN 08/19/16 08/19/16 08/19/16 History [Ventolin Hfa] Montelukast Sodium [Singulair] 10 mg PO DAILY 08/19/16 08/19/16 08/19/16 History Albuterol 2.5MG/Ipratrop 0.5MG 3 ml INH Q2H PRN PRN #0 neb 08/24/16 Unknown Rx [Duoneb (A & A)] Fluticasone/Vilant 100/25 INH 1 puff INH RTDAILY #0 inhaler 08/24/16 Unknown Rx [Breo Ellipta 100/25 Mcg INH] Levofloxacin [Levaquin] 500 mg PO DAILY #10 tablet 08/24/16 Unknown Rx Methylprednisolone [Medrol Dosepak] 4 mg PO DIRECTED #1 package 08/24/16 Unknown Rx Omeprazole [Prilosec] 40 mg PO DAILY@0700 #0 capsule 08/24/16 Unknown Rx Saline Nasal [place] [Dix Nasal 0 ml [facility] PRN PRN #0 bottle 08/24/16 Unknown Rx [place]] Tiotropium [place] Inhaler 1 puff INH RTDAILY #0 inhaler 08/24/16 Unknown Rx [Spiriva] - History of Present Illness-Cardiac Nature of Presenting Problem: Patient is a 66 year old male who presents in the ED with complaints of dyspnea/ irregular heart rhythm. He states he has had elevated heart rate/palpitations this evening as well as low blood pressure, and states he has also had shortness of breath. He also states he has a history of COPD, and states he tried using four nebulizer treatments in the last two hours prior to arrival in ED with no improvement. He reports he was discharged from [facility] yesterday. Denies any other symptoms. Location: reports: substernal Quality of Pain: reports: aching Severity in ED: mild Onset/Duration: abrupt, this evening Timing: still present, changing over time Context/Activities at Onset: reports: light activity Modifying Factors: improves with: nothing Palpitation Quality: fast/pounding heart beat History of arrythmia: reports: none Recent use of:: denies: no stimulants, caffeine, decongestant, cocaine, amphetamine, other Nitro Today/Relief: reports: no nitro taken today Aspirin Treatment Today: reports: no aspirin today Prior Chest Pain/Cardiac Workup: reports: no prior chest pain Associated Symptoms: reports: shortness of breath Similar Symptoms Previously?: No Recently Seen Here or By Another Healthcare Provider: Yes (discharged from [facility] yesterday) Review of Systems - Adult - REVIEW OF SYSTEMS - ADULT Constitutional: reports: no symptoms reported Eyes: reports: no symptoms reported Ears, Nose, Mouth & Throat: reports: no symptoms reported Cardiovascular: reports: see HPI, chest pain, irregular heart rate Respiratory: reports: see HPI, shortness of breath Gastrointestinal: reports: no symptoms reported Genitourinary: reports: no symptoms reported Musculoskeletal: reports: no symptoms reported Integumentary: reports: no symptoms reported Neurological: reports: no symptoms reported Psychiatric: reports: no symptoms reported Endocrine: reports: no symptoms reported Hematologic/Lymphatic: reports: no symptoms reported Allergic/Immunologic: reports: no symptoms reported All Other Systems: Reviewed and Negative Past History - Adult - PAST MEDICAL HISTORY-ADULT Review of Records: reports: Nursing Assessment Review, Medications Reviewed Major Childhood Illnesses: reports: denies history Cardiovascular: reports: HTN Respiratory: reports: asthma, COPD (emphysema) Gastrointestinal: reports: GERD Obstetrical/Gynecological: reports: denies history Genitourinary: reports: denies history Musculoskeletal: reports: denies history Neurological: reports: denies history Psychiatric: reports: denies history Endocrine/Immune: reports: denies history Other Conditions: reports: denies history - PRIOR SURGERIES/PROCEDURES Surgical/Procedure History: reports: none - IMMUNIZATION STATUS Childhood Immunizations: See Nurse Assessment Flu Vaccine: See Nurse Assessment - FAMILY HISTORY Family History: reviewed, not pertinent - SOCIAL HISTORY Smoking: non-smoker, quit greater than 1 year Substance Use: none/never Alcohol Use Frequency: never Living Situation: family Physical Exam-General - PHYSICAL EXAM-ADULT Initial Vital Signs Reviewed: Yes - CONSTITUTIONAL General Appearance: alert, no apparent distress - EYES Eyes: PERRL/EOMI, pink conjunctivae - HEAD, EARS, NOSE, MOUTH & THROAT HENMT: normocephalic/atraumatic, moist mucous membranes - NECK Neck: non-tender, full range of motion, supple, normal inspection - RESPIRATORY Respiratory: chest non-tender, lungs clear, normal breath sounds, no pleuratic chest pain, no respiratory distress, no accessory muscle use - CARDIOVASCULAR Cardiovascular: normal peripheral pulses, no edema, no gallop, no JVD, no murmur , tachycardia, irregularly irregular - GASTROINTESTINAL (ABDOMEN) Abdominal Exam: normal bowel sounds, non tender, soft, no organomegaly, no pulsatile mass - LYMPHATIC Lymphatic: no adenopathy - MUSCULOSKELETAL Back Exam: normal inspection, no CVA tenderness, no vertebral tenderness Extremity: normal range of motion, non-tender, normal gait, normal inspection, no pedal edema, no calf tenderness, normal capillary refill, pelvis stable - SKIN Integumentary: normal color, normal turgor, warm/dry - NEUROLOGIC Neurologic: grossly normal, no motor/sensory deficits - PSYCHIATRIC Psych/Mental Status: normal mood/affect, oriented x 3 Progress - PLAN OF CARE/RESULTS Progress/Plan/Lab Results: Vital Signs - 8 hr 03/03/17 20:33 03/03/17 21:53 Temperature 97.9 F Pulse Rate 186 H 97 H Respiratory Rate 25 H 19 Blood Pressure 81/55 84/40 O2 Sat by Pulse Oximetry 93 L 94 L Laboratory Results - last 24 hr 03/03/17 03/03/17 03/03/17 20:42 20:42 20:42 WBC RBC Hgb Hct MCV MCH MCHC RDW Std Deviation Plt Count MPV Immature Gran % (Auto) Neut % (Auto) Lymph % (Auto) Leslie % (Auto) Eos % (Auto) Baso % (Auto) Immature Gran # (Auto) Neut # (Auto) Lymph # (Auto) Leslie # (Auto) Eos # (Auto) Baso # (Auto) PT INR PTT (Actin FS) D-Dimer 0.36 Sodium 137 Potassium 3.7 Chloride 103 Carbon Dioxide 22 L Anion Gap 12 BUN 18 Creatinine 0.9 Estimated GFR/1.73 m2 > 60 BUN/Creatinine Ratio 20 Glucose 110 H Calculated Osmolality 276 Calcium 7.5 L Magnesium 2.0 Total Bilirubin 0.23 AST 18 ALT 21 Alkaline Phosphatase 60 Creatine Kinase 99 Troponin T < 0.010 Rph-I-Kzchixithdj Pept Total Protein 5.9 L Albumin 3.5 Globulin 2.4 Albumin/Globulin Ratio 1.5 03/03/17 03/03/17 03/03/17 20:42 20:42 20:42 WBC 18.83 H RBC 4.78 Hgb 13.6 L Hct 40.4 L MCV 84.5 MCH 28.5 MCHC 33.7 RDW Std Deviation 15.5 H Plt Count 241 MPV 9.6 Immature Gran % (Auto) 0.4 Neut % (Auto) 64.9 Lymph % (Auto) 19.3 L Leslie % (Auto) 15.1 H Eos % (Auto) 0.2 Baso % (Auto) 0.1 Immature Gran # (Auto) 0.07 H Neut # (Auto) 12.22 H Lymph # (Auto) 3.64 H Leslie # (Auto) 2.85 H Eos # (Auto) 0.04 Baso # (Auto) 0.01 PT 9.7 INR 0.93 PTT (Actin FS) 23.6 D-Dimer Sodium Potassium Chloride Carbon Dioxide Anion Gap BUN Creatinine Estimated GFR/1.73 m2 BUN/Creatinine Ratio Glucose Calculated Osmolality Calcium Magnesium Total Bilirubin AST ALT Alkaline Phosphatase Creatine Kinase Troponin T Tdx-Y-Cswlvbrndet Pept 1103 H Total Protein Albumin Globulin Albumin/Globulin Ratio Orders Category Date Time Status Cardiac Monitoring DIRECTED Care 03/03/17 20:49 Active Misc. NRSG Communication Order DIRECTED Care 03/03/17 22:09 Active Oxygen Therapy- ED Nursing DIRECTED Care 03/03/17 20:49 Active Saline Loc NOW Care 03/03/17 20:49 Active CBC WITH ELECTRONIC DIFF [HEME] Stat Lab 03/03/17 20:42 Completed CK PROFILE [SP CHEM] Stat Lab 03/03/17 20:42 Completed COMPREHENSIVE METABOLIC PANEL [CHEM] Stat Lab 03/03/17 20:42 Completed D-DIMER [CHEM] Stat Lab 03/03/17 20:42 Completed MAGNESIUM [CHEM] Stat Lab 03/03/17 20:42 Completed PRO B-NATRIURETIC PEPTIDE Stat Lab 03/03/17 20:42 Completed PROTIME WITH INR [COAG] Stat Lab 03/03/17 20:42 Completed PTT [COAG] Stat Lab 03/03/17 20:42 Completed TROPONIN T Stat Lab 03/03/17 20:42 Completed 0.9% Sodium Chloride Inj [Ns] 1,000 ml Med 03/03/17 20:40 Discontinued .ROUTE As Directed 0.9% Sodium Chloride Inj [Ns] 1,000 ml Med 03/03/17 21:32 Discontinued IV 999 mls/hr 0.9% Sodium Chloride Inj [Ns] 2,000 ml Med 03/03/17 21:33 Active IV 999 mls/hr Digoxin [Lanoxin] Med 03/03/17 22:08 Discontinued 500 microgm IV NOW ONE Diltiazem 100 mg/Ns [Cardizem 100 mg/Ns] Med 03/03/17 22:00 Active 100 mg in 100 ml IV As Directed Diltiazem [Cardizem] Med 03/03/17 20:40 Discontinued 10 mg IV NOW ONE Diltiazem [Cardizem] Med 03/03/17 20:50 Discontinued 10 mg IV NOW ONE Dopamine 400 mg/D5w Med 03/03/17 22:00 Active 400 mg in 500 ml IV As Directed Midazolam [Versed] Med 03/03/17 21:03 Discontinued 10 mg .ROUTE .STK-MED ONE Midazolam [Versed] Med 03/03/17 21:05 Discontinued 10 mg IV NOW ONE EKG [EKG] Stat Ther 03/03/17 20:24 Ordered Result Diagrams: 03/03/17 20:42 03/03/17 20:42 - CONSULTS/PCP/HOSPITALIST Notification #1 *Consult/PCP/Hospitalist*: Dr. Chase Time Discussed: 22:13 Consult Disposition: Admit Procedures - CARDIOVERSION/DEFIBRILLATION Procedure, Risk, Benefits and Alternatives discussed with:: Patient Cardioverted/Defibrillated at:: 100 cailin Post Cardioversion/Defibrillation Rate: 96 Post Cardioversion/Defibrillation Rhythm: normal sinus rhythm Departure - Departure Date of Disposition Decision: 03/03/17 Time of Disposition Decision: 22:09 DIAGNOSIS: New onset a-fib Disposition: ADMITTED INPATIENT 09 Certified Medical Emergency: Emergent Condition: Stable - Critical Care Note This patient required my direct & personal management of CC.: Yes Total Time (mins): 60 Critical Care Statement: This patient required my direct personal management to treat or rule out processes, the absence of which, could potentiallly result in sudden, clinically significant life or limb threatening deterioration. Attestation - Physician/ KELLEE Attestation Patient care was provided by Advanced Practice Provider:: No The physician spent face to face time with patient:: Yes Advanced Practice Provider documentation review:: Supervising physician onsite and consulted in the evaluation and care of this patient. The physician did have a face to face encounter with the patient. This chart was documented by the indicated scribe, (Taylor Mclaughlin Scribe) and accurately reflects the services I performed and decisions made by me, Cruz Landers MD, as attested by the provider's signature.
[2017-03-03] MEDS: DOPAMINE 400 MG/D5W 400 MG/500 ML IV.SOLN IV SCH (22:45)
[2017-03-04] MEDS ORDERED: NS 1,000 ML IV ONE (00:33)
[2017-03-04] MEDS: DOPAMINE 400 MG/D5W 400 MG/500 ML IV.SOLN IV SCH (00:33)
[2017-03-04] MEDS ORDERED: SOLU-MEDROL IV ONE (01:01)
[2017-03-04] MEDS ORDERED: TYLENOL PO PRN (01:01)
[2017-03-04] MEDS: LOVENOX SUBQ SCH (02:07)
[2017-03-04] MEDS: LEVAQUIN 750 MG/D5W 750 MG/150 ML IVPB IV SCH (02:07)
--- NOTE | 2017-03-04 03:51 | HISTORY AND PHYSICAL ---
PRIMARY CARE PHYSICIAN: Keith Zepeda MD. CHIEF COMPLAINT: Shortness of breath. HISTORY OF PRESENT ILLNESS: This is a 66-year-old male who came in by EMS from home in [place]. He states he was in [facility], was admitted for the last 3-4 days and was discharged yesterday for COPD exacerbation. While at home today, he just felt more short of breath with any kind of movement, especially even like walking from the bedroom to the living room, he felt winded. He did 4 albuterol treatments at home around 5 o'clock which did not improve his breathing condition. So he called EMS and was transferred to [facility] ER for further evaluation. On arrival here, per the ER physician's description, his heart rate was noted to be around 180 range to 200 range and EKG showed A-fib pattern. He was given 20 mg of Cardizem IV which decreased the heart rate for short term and then it went back up again. He then was cardioverted and then loaded with 0.5 mg of digoxin. After that, his heart rate went down to around 90-100 range. After that, he developed hypertension with blood pressure going down to 84/40. He was then given 3 liters of fluid and started on dopamine drip and while I was there in the exam room, his blood pressure has already been 99/61. He is also currently on Cardizem drip. On the puppy trainer, his rhythm strip looks like A-fib pattern. He is being admitted to the hospital for further investigation and management of the new-onset atrial fibrillation. PAST MEDICAL HISTORY: COPD, coronary artery disease status post 2 or 3 stents in 2011, currently not on any medicine for blood pressure or cholesterol. PAST SURGICAL HISTORY: No known past surgical history. FAMILY HISTORY: Noncontributory. SOCIAL HISTORY: Long-time smoker. He said he quit about 8-9 months ago but occasionally he still smokes 1-2 cigarettes. He denies any alcohol or illicit drug usage. ALLERGIES: NO KNOWN DRUG ALLERGIES. HOME MEDICATIONS: 1. Albuterol inhaler. 2. Singulair. 3. Budesonide inhaler nebulizer solution. 4. Levaquin from this recent hospitalization. REVIEW OF SYSTEMS: A 10-point review of systems was obtained. Please refer to HPI for pertinent positives and negatives. PHYSICAL EXAMINATION: VITAL SIGNS: Temperature 97.9 degrees, pulse rate 91, respiratory rate 21, blood pressure 99/61, pulse ox 93% on 5 liters. GENERAL: A well-developed male in sitting position in mild acute distress for breathing. Audible rhonchi. HEENT: Head normocephalic, atraumatic. Eyes - extraocular movements intact. No pallor. His left pupil is larger than the right pupil. He said he had a head injury when he was little which caused this pupil inequality. Oral mucosa is dry. NECK: No JVD. No carotid bruits. CARDIOVASCULAR: Heart sounds are remote. Irregular rhythm. Normal S1, S2. No murmur. PULMONARY: Diminished throughout. Rhonchi all over. Wheezing. GASTROINTESTINAL: Abdomen soft, nontender, nondistended. Positive bowel sounds. EXTREMITIES: No edema. Pulses present. SKIN: No rash, no cyanosis. Normal capillary refill. NEUROLOGIC: Alert, awake and oriented. No focal deficits noted. INCOMPLETE REPORT - DICTATION ENDS HERE. cc: Rena Pate MD
--- NOTE | 2017-03-04 04:30 | HISTORY AND PHYSICAL ---
ADDENDUM LABORATORY DATA: CBC shows white count 18.8, hemoglobin 13.6, hematocrit 40.4, platelets 241. PT 9.7, INR 0.93. Chemistry: Sodium 137, potassium 3.7, chloride 103, bicarb 22, BUN 18, creatinine 0.9, glucose 110. Troponin less than 0.01. BNP 1103. EKG, the first one shows heart rate of 180 A-fib with RVR. This was done at 2020. Repeat EKG at 2108 shows sinus rhythm with PACs. No ST changes. ASSESSMENT: 1. New-onset atrial fibrillation with rapid ventricular response, converted at this point. 2. Hypotension. 3. Chronic obstructive pulmonary disease exacerbation. PLAN: 1. The patient will be admitted to the hospital in the ICU setting, given he is still on Cardizem and dopamine drip. We are going to have Cardiology consult for managing his new-onset atrial fibrillation with rapid ventricular response. At this point, we will continue keeping him on the Cardizem drip and at some point, we will convert him to p.o. Cardizem. 2. His blood pressure is around the mid 90 range systolic. We will continue him on the dopamine drip and use gentle fluid hydration. 3. Given he has elevated BNP, we are going to repeat the labs in the morning and check his cardiac enzymes in the morning. 4. For his chronic obstructive pulmonary disease exacerbation, we will start him on breathing treatments with DuoNeb. We will give him Solu-Medrol injection and start the patient on Levaquin 750 mg IV q. 24 hours for the exacerbation. 5. Tomorrow his primary care doctor, Dr. Zepeda, will resume care. cc: Rena Pate MD
[2017-03-04 04:36] LABS: ALLEN TEST YES; BE -2.3 mmoll (-3.0-3.0); BLOOD TYPE ARTERIAL; DRAW SITE R RADIAL; O2(CT) 17.7 mL/dL (15.0-23.0); PCO2(98.6) 38 mmHg (35-45); PO2(98.6) 93 mmHg (60-100); SAMPLE BLOOD; SAO2 99.3 % (95.0-100.0); pH(98.6) 7.38 (7.35-7.45)
[2017-03-04 04:37] LABS: MODALITY CANNULA
[2017-03-04 05:39] LABS: AGAP 14; ALBUMIN 3.2 g/dL (3.5-5.0); ALKALINE PHOSPHATASE 48 U/L (32-122); BUN 14 mg/dL (8-22); CALCIUM 7.8 mg/dL (8.8-10.2); CHLORIDE 103 mmol/L (98-107); COSMO 276; GOT 19 U/L (10-34); GPT 21 U/L (10-44); POTASSIUM 4.3 mmol/L (3.5-5.1); SODIUM 137 mmol/L (136-145); TCO2 20 mmol/L (25-35); TOTAL BILIRUBIN 0.45 mg/dL (0.20-1.00); TOTAL PROTEIN 5.8 g/dL (6.3-8.3)
--- NOTE | 2017-03-04 05:50 | EKG Report ---
Test Performed on : 03/03/2017 9:09:37 PM Test Reason : sob Blood Pressure : / mmHG Vent. Rate : 096 BPM Atrial Rate : 096 BPM P-R Int : 118 ms QRS Dur : 082 ms QT Int : 330 ms P-R-T Axes : 026 004 070 degrees QTc Int : 416 ms Sinus rhythm. with premature supraventricular complexes. Low voltage QRS Septal infarct (cited on or before 15-JUL-2016) Abnormal ECG When compared with ECG of 03-MAR-2017 20:21, (Unconfirmed) Sinus rhythm. has replaced Atrial fibrillation. Vent. rate has decreased BY 84 BPM Questionable change in initial forces of Anterior leads Non-specific change in ST segment in Anterior leads Unconfirmed Result
[2017-03-04] MEDS ORDERED: DOPAMINE 400 MG/D5W 400 MG/500 ML IV.SOLN IV SCH (05:58)
[2017-03-04] MEDS ORDERED: NS 1,000 ML IV SCH (06:10)
--- NOTE | 2017-03-04 07:39 | Diag Imaging Result Doc PS360 ---
EXAM: CHEST-PORTABLE HISTORY: SOB TECHNIQUE: AP portable upright at 2350 COMMENT: There is bullous emphysema in the upper lung zones particularly the left apex. There is cardiomegaly. There is increased pulmonary vascularity. There is interstitial pulmonary edema. Compared to 08/19/2016 the heart size is larger and the pulmonary vascularity is more prominent. IMPRESSION: COPD, pulmonary edema and cardiomegaly. Electronically signed by Phill Boo 03/04/2017 7:36 AM
[2017-03-04] MEDS: SINGULAIR PO SCH (09:13)
[2017-03-04] MEDS: SOLU-MEDROL IV SCH ×2 (09:13→15:25)
[2017-03-04] MEDS: ROCEPHIN 1 GM in NS 50 ML IV SCH (09:44)
--- NOTE | 2017-03-04 10:10 | CONSULTATION ---
DATE OF CONSULTATION: 03/04/2017 INDICATION: Shortness of breath. New onset atrial fibrillation. HISTORY OF PRESENT ILLNESS: Mr. Rea is a 66-year-old, white male with a history of coronary disease with previous PCI (it is unclear exactly when this was and where he believes it was done in a hospital in [place], [place] around 5 years ago). In addition, he has a history of severe COPD and follows with Dr. Duane conway in [facility]. He had a recent admission for 3-4 days or so with discharge on Saturday from [facility]. He reports he was having a lot of difficulty with shortness of breath as well as some sort of pleuritic discomfort in his chest. He apparently was at home on Saturday and throughout the remainder of Saturday as well as Saturday, he continued to have quite a bit of issue with shortness of breath as well as a pleuritic type discomfort. He denies any overt fevers. He has kept a baseline cough. He eventually called EMS over that time period. Presented to the ER here in [place] and was found to be in what appeared to be new onset atrial fibrillation. He was placed on a Cardizem infusion as well as 0.5 mg of digoxin. He apparently had a conversion in his heart rate at that time and then his systolics were noted to be quite low, occasionally in the 80s. He was placed on some dopamine and given some fluids and placed in the ICU. Over that time period, the patient has continued to have issues with shortness of breath as well as continued discomfort that seems to be pleuritic in nature diffusely across his chest. He is not aware of any previous heart history other than those stents. He is not aware of any atrial fibrillation per his medical record. He does not seem to be treated on any sort of anticoagulant consistent with atrial fibrillation. He is a very limited historian. PAST MEDICAL HISTORY: 1. Significant for coronary disease as detailed above. We are currently pending records from [place], [place]. 2. Severe COPD with most recent FEV1 in August of 33%. 3. Reflux disease. 4. Current treatment of an antibiotic at home in the form of Levaquin, presumably given at the time of his last hospitalization. SOCIAL HISTORY: The patient has very intermittent smoking recently. Reports he quit several years ago. No current alcohol use. FAMILY HISTORY: Significant for hypertension. REVIEW OF SYSTEMS: A 10 system review of systems is negative except for those things mentioned in HPI. PHYSICAL EXAMINATION: Vital signs: During this hospitalization, he has been afebrile. His heart rates currently are in the 70s. On admission he was in the 180s. His blood pressure most recently is 96/52. His O2 saturation is 97% on 4 L. General: He is in no acute distress. Somewhat ill appearing. HEENT: Oropharynx is moist. Poor dentition. His eye examination is pink conjunctivae, white sclerae. Neck: Examination shows no obvious thyromegaly or thyroid tenderness. Cardiovascular: He sounds to be in a regular rate and rhythm. His EKG is consistent with sinus rhythm presently. He has no lower extremity edema. He has no carotid bruits. Chest: Examination has some very minimal expiratory wheezes heard somewhat diffusely. He coughed several times during the examination. He has no increased work of breathing. Abdomen: Soft, nontender. It is quite protuberant. No obvious organomegaly. Skin Exam: Warm and dry throughout without any rashes. Neurological: He seems to be moving all extremities well. Cranial nerves 2-12 are intact without any sensation deficits. Psychiatric: He is alert, oriented, pleasant. Normal mood and affect. PERTINENT DATA: He had a chest x-ray performed showing evidence for bullous emphysema in the upper lung zones. Cardiomegaly is noted. Increased pulmonary vascularity. Some notion of interstitial pulmonary edema was noted. He had an electrocardiogram performed, initially at 2020 yesterday showing atrial fibrillation with rapid ventricular response. He does have evidence for Q-waves in V1 through V3. No signs of acute ischemic changes. No reciprocal changes elsewhere. His current telemetry demonstrates sinus rhythm. His most recent EKG in July 2016 continues to show those Q-waves in V1 through V3. He was in sinus rhythm at that time. His laboratory data shows a white count 18.8, his hematocrit is 40, his platelet count is 241. His INR is 0.9. His D-dimer is negative. His ABG shows a pH of 7.38, pCO2 of 38, pO2 of 93. That was on an FiO2 of 36%. His sodium is 137, potassium 4.3, his BUN is 14, creatinine 0.6. His proBNP was around 1100. His cardiac enzymes are negative times multiple sets. TSH 0.93. Albumin 3.2. ASSESSMENT: 1. What appears to be new onset atrial fibrillation in a patient with a CHADS-VASc score of 1 for age. 2. History of coronary disease with probable previous myocardial infarction. We are currently awaiting his records. 3. Likely continued chronic obstructive pulmonary disease flare. PLAN: We are obtaining his records from [place], as well as in [place]. We are trying to delineate exactly what the condition of his coronaries are at the time of the stent he had about 5 years ago. His initial echo seems to show some evidence of hypokinesis in the apex, but there are poor views there. For now, we will continue him on current medications. His full echo is pending. His TSH is normal. We will obtain the full results of his echo before deciding on a laborer marine terminal anticoagulation. cc: MD Juan Matson MD
[2017-03-04] MEDS ORDERED: CEPACOL SORE THROAT LOZENGE MT PRN (11:46)
[2017-03-04] MEDS ORDERED: DUONEB (A & A) INH PRN (17:50)
[2017-03-04] MEDS ORDERED: ROBITUSSIN-AC PO PRN (17:57)
--- NOTE | 2017-03-04 18:24 | PROGRESS NOTE ---
DATE: 03/04/2017 SUBJECTIVE: A 66-year-old white gentleman, admitted to the hospital with a new onset of atrial fibrillation, symptomatic, requiring cardioversion in the emergency room. The patient was recently discharged from [facility]. He was here in August 2016 for severe COPD. PAST MEDICAL HISTORY: Reviewed. PAST SURGICAL HISTORY: Reviewed. MEDICINES: Reviewed. PHYSICAL EXAMINATION: Vital signs: He is on dopamine drip, vitals are stable. Tachycardic, not in respiratory distress. HEENT: Within normal limits. Chest: Bilateral wheezing. heart: Distant Heart sounds. Gastrointestinal: Sounds belly is soft, nontender. Good bowel sounds. extremities: No peripheral edema, cyanosis. neurologic: No obvious neurological deficits. INVESTIGATIONS: On March 03, white cell count 18, hematocrit 40, platelets 241,000. SMA-7: Sodium 137, potassium 4.3, chloride 103, CO2 of 20, BUN 14, creatinine 0.6, glucose 124, calcium 7.8. D-dimer is negative. ABG: PH is 7.38, pCO2 of 38, PO2 of 93 on 36%. ProBNP is 1000. Cardiac enzymes were negative. TSH is normal. Chest x-ray: COPD changes. TSH is normal. ASSESSMENT AND PLAN: 1. New onset of atrial fibrillation, status post cardioversion. currently stable. I appreciate Dr. Gracia's consult. Normal thyroid function tests. 2. Coronary artery disease, with a stent in the left anterior descending in 2011. Continue secondary prevention. 3. Chronic chronic obstructive pulmonary disease, oxygen-dependent. Continue on bronchodilators, IV Levaquin, IV ceftriaxone, IV steroids. Sputum cultures are pending. 4. Deep vein thrombosis prophylaxis with Lovenox and gastrointestinal prophylaxis with IV Protonix, respectively. 5. Hypotension, weaned off dopamine, and we will follow up. cc: Juan Zepeda MD
[2017-03-04] MEDS: SODIUM CHLORIDE 0.9% INJ SCH (18:42)
[2017-03-04] MEDS: PROTONIX IV SCH (18:42)
--- NOTE | 2017-03-04 20:10 | ECHO REPORT ---
ORDER DATE: 03/04/2017 INTERPRETING PHYSICIAN: Dr. Kim REQUESTING PHYSICIAN: CLINICAL INDICATIONS: A 66-year-old male with COPD, embolism, arrhythmia, chest pain. M-MODE MEASUREMENTS: Right ventricle: 2.0 cm. Left ventricle end diastole: 5.5 cm. Left ventricle end systole: 3.8 cm. Posterior wall: 0.9 cm. Interventricular septum: 0.9 cm. Left atrium: 4.8 cm. Aortic root: 3.0 cm. SUMMARY OF 2-DIMENSIONAL IMAGING: This study was done with injection of Definity to enhance the endocardial visualization. The left ventricular function is impaired. Without Definity, the global ejection fraction appears to be in the order of 45%. With Definity injection, the ejection fraction is actually much worse and probably is in the order of 30% to no more than 35%. The entire distribution of the LAD is akinetic. The anteroseptal segment is akinetic. The distal apical wall is dyskinetic. The distal lateral wall is akinetic. The distal interventricular septum is akinetic. The basal septum, the basal lateral wall, and mid lateral wall showed better contractility. This study is technically very limited. The aortic valve shows calcification of the cusp with restricted opening. Maximum gradient across the valve is 35 mmHg. Mean gradient is 20 mmHg. Color flow mapping shows a mild degree of regurgitation. This would suggest at least a moderate degree of aortic stenosis. The pulmonic valve looks grossly normal. The tricuspid valve shows a mild degree of regurgitation. The inferior vena cava is enlarged. Pulmonary pressure estimated at 43 to 48 mmHg. There is no pericardial effusion, masses or thrombus. The atrial appear to be mildly enlarged. IMPRESSION: In summary, this study showed: 1. Significantly impaired left ventricular systolic function with wall motion abnormality along the distribution of the LAD with anteroseptal akinesis, apical septal dyskinesis. That suggests an LAD infarction. 2. Moderate degree of aortic valve stenosis. Accurate calculation of the valve area is precluded because of the limited visualization of LVOT. 3. There is no diastolic dysfunction. The tissue Doppler of septal and lateral mitral annulus averages 9 cm. The E/A ratio is probably normal. 4. There is pulmonary hypertension in the range of 43 to 48 mmHg. 5. There is a mild degree of mitral and tricuspid regurgitation. Clinical correlation recommended. cc: MD Juan Soler MD [facility]
[2017-03-04] MEDS: DUONEB (A & A) INH PRN (20:18)
[2017-03-04] MEDS: SPIRIVA INH SCH (20:30)
[2017-03-05] MEDS: LEVAQUIN 750 MG/D5W 750 MG/150 ML IVPB IV SCH (00:11)
[2017-03-05] MEDS: SOLU-MEDROL IV SCH ×3 (00:11→16:24)
[2017-03-05] MEDS: LOVENOX SUBQ SCH (00:12)
[2017-03-05] MEDS: DUONEB (A & A) INH PRN ×5 (00:20→15:28)
[2017-03-05 04:59] LABS: ALLEN TEST YES; BLOOD TYPE ARTERIAL; DRAW SITE R RADIAL; METHB 1.5 % (0.0-1.5); O2(CT) 18.2 mL/dL (15.0-23.0); PCO2(98.6) 36 mmHg (35-45); PO2(98.6) 116 mmHg (60-100); SAMPLE BLOOD; SAO2 99.7 % (95.0-100.0); THB 13.3 g/dL (11.5-17.4); pH(98.6) 7.46 (7.35-7.45)
[2017-03-05 05:00] LABS: MODALITY CANNULA
[2017-03-05 06:22] LABS: INR 1.24; PROTIME 13.2 Seconds (9.2-11.7)
[2017-03-05 06:23] LABS: BASO% 0.1 % (0.0-0.8); HEMATOCRIT 39.6 % (42.0-52.0); HEMOGLOBIN 13.3 g/dL (14.0-18.0); IMM GRAN# 0.09 X1000 (0.0-0.04); IMM GRAN% 0.5 % (0.0-0.5); LYMPH# 0.83 X1000 (1.2-3.4); LYMPH% 4.3 % (20.5-51.1); MANUAL DIFF NEEDED? YES; MCH 28.5 PG (27-31); MCHC 33.6 g/dL (33-37); MCV 84.8 FL (81-99); MONO# 1.34 X1000 (0.11-0.59); MPV 11.6 FL (7.4-10.4); NEUT% 88.1 % (42.2-75.2); RBC 4.67 XMIL (4.7-6.1)
--- NOTE | 2017-03-05 06:43 | EKG Report ---
Test Performed on : 03/05/2017 05:58:06 AM Test Reason : cp Blood Pressure : / mmHG Vent. Rate : 083 BPM Atrial Rate : 083 BPM P-R Int : 122 ms QRS Dur : 096 ms QT Int : 404 ms P-R-T Axes : 070 -09 066 degrees QTc Int : 474 ms Normal sinus rhythm. Low voltage QRS Cannot rule out Anteroseptal infarct (cited on or before 15-JUL-2016) Abnormal ECG When compared with ECG of 03-MAR-2017 21:09, premature supraventricular complexes. are no longer present Questionable change in initial forces of Anterior leads QT has lengthened Confirmed by Desmond Navarrete MD ([id number]) on 03/05/2017 6:59:09 PM
[2017-03-05 06:55] LABS: AGAP 12; ALBUMIN 3.3 g/dL (3.5-5.0); ALKALINE PHOSPHATASE 53 U/L (32-122); BUN 13 mg/dL (8-22); CALCIUM 8.6 mg/dL (8.8-10.2); CHLORIDE 103 mmol/L (98-107); COSMO 273; GOT 18 U/L (10-34); GPT 18 U/L (10-44); POTASSIUM 4.1 mmol/L (3.5-5.1); SODIUM 136 mmol/L (136-145); TCO2 21 mmol/L (25-35); TOTAL BILIRUBIN 0.45 mg/dL (0.20-1.00); TOTAL PROTEIN 5.9 g/dL (6.3-8.3)
[2017-03-05] MEDS: BREO ELLIPTA 100/25 MCG INH INH SCH (07:46)
[2017-03-05 07:56] LABS: LYMPHS 6 % (21-51); MONO 4 % (1-9)
[2017-03-05] MEDS: SINGULAIR PO SCH (08:51)
[2017-03-05] MEDS: ROCEPHIN 1 GM in NS 50 ML IV SCH (10:09)
[2017-03-05 13:56] LABS: PLT 282 X1000 (130-400)
[2017-03-05] MEDS: LANOXIN PO SCH (16:24)
--- NOTE | 2017-03-05 16:26 | PROGRESS NOTE ---
DATE: 03/05/2017 SUBJECTIVE: Mr. Rea apparently has been doing well. He has no complaints of any chest pain. PHYSICAL EXAMINATION: Vital signs: He is afebrile. His heart rates are in the 90s to low 100s. Blood pressure 128/73. His current telemetry seems to show sinus. General: No acute distress. Cardiovascular: He is in a regular rate and rhythm. He has no murmurs. No S3. No lower extremity edema. Chest: Reduced breath sounds noted somewhat diffusely. No increased work of breathing. Abdomen: Soft, nontender, nondistended. He has no obvious organomegaly. PERTINENT DATA: His white count is 19.1, hematocrit 39.6, platelet count 282,000. His sodium is 136, potassium 4.1, BUN 13, creatinine 0.6. ASSESSMENT: 1. New-onset atrial fibrillation. Currently in sinus. 2. History of ischemic cardiomyopathy. PLAN: His echocardiogram was ordered yesterday and with injection of Definity, his EF was in the order of 30-35% with akinetic anterior wall consistent with his LAD infarct in 2011 in [place]. This was noted in his records from [place], [place]. We will add in digoxin at 0.125 mg daily. I will plan on checking a myocardial perfusion rest study in the morning to evaluate the extent of the infarct. We will likely try to add in a low dose beta-claire in the near future, and he will likely need long-term oral anticoagulation. We will likely have does discussions with the patient in the morning. cc: MD Juan Matson MD
[2017-03-05] MEDS: SODIUM CHLORIDE 0.9% INJ SCH (18:12)
[2017-03-05] MEDS: PROTONIX IV SCH (18:12)
--- NOTE | 2017-03-05 18:20 | PROGRESS NOTE ---
DATE: 03/05/2017 SUBJECTIVE: 1. The patient is now in sinus. 2. Complaints of difficulty in swallowing with solids in the midesophagus. 3. Shortness of breath, cough, and wheezing. REVIEW OF SYSTEMS: Rest of review of systems: None reported. PHYSICAL EXAMINATION: Vital Signs: Afebrile, pulse is 94, blood pressure 106/61, 4 L nasal cannula 95%. In and Out: -900. HEENT Examination: Within normal limits. Neck: Supple. Chest: Bilateral expiratory wheezing. Heart: Sounds are very distant. Abdomen: Belly is soft, nontender. Good bowel sounds. No obvious neurological deficits. INVESTIGATIONS: CBC: White cell count 19, hematocrit 39, platelets 282. PT 13, INR 1.2. ABG: pH is 7.46, pCO2 36, PO2 116, bicarbonate 26. SMA 7. Sodium 136, potassium 4.1, chloride 103, BUN 13, creatinine 0.6. Cardiac enzymes were normal. Liver function tests were normal. ASSESSMENT AND PLAN: 1. Chronic obstructive pulmonary disease, severe emphysema. Continue on oxygen, bronchodilators, IV antibiotics and IV steroids. 2. Ischemic cardiomyopathy, paroxysmal atrial fibrillation and EF 30-35%. Dr. Gracia is going to do myocardial perfusion at rest and add low dose of Lanoxin. He also needs to reduce the afterload with MIRA inhibitors and also anticoagulation to prevent stroke. 3. Dysphagia, most likely acid reflux. Continue IV Protonix. Once his situation gets better consider EGD. He is too sick to be done as an outpatient. 4. Deep venous thrombosis prophylaxis with Lovenox. LEVEL OF DOCUMENTATION: 25 minutes. cc: Juan Zepeda MD
[2017-03-05] MEDS: SPIRIVA INH SCH (21:45)
[2017-03-06] MEDS: SOLU-MEDROL IV SCH ×3 (00:27→16:52)
[2017-03-06] MEDS: LEVAQUIN 750 MG/D5W 750 MG/150 ML IVPB IV SCH (00:28)
[2017-03-06] MEDS: LOVENOX SUBQ SCH (00:28)
[2017-03-06] MEDS: DUONEB (A & A) INH PRN (07:50)
[2017-03-06] MEDS: BREO ELLIPTA 100/25 MCG INH INH SCH (07:50)
[2017-03-06] MEDS: ROCEPHIN 1 GM in NS 50 ML IV SCH (08:07)
[2017-03-06] MEDS: SINGULAIR PO SCH (09:56)
[2017-03-06] MEDS: TOPROL XL PO SCH (13:08)
[2017-03-06] MEDS: LANOXIN PO SCH (13:09)
--- NOTE | 2017-03-06 13:30 | PROGRESS NOTE ---
DATE: 03/06/2017 SUBJECTIVE: Mr. Rea reports he is doing well. He is not having any chest pain. PHYSICAL EXAMINATION: Vital Signs: He is afebrile. Heart rates in the 80s to 90s. Blood pressure 124/73. He is in sinus rhythm. General: He is in no acute distress. Cardiovascular: He is in a regular rate and rhythm. Current telemetry shows sinus rhythm. He has no lower extremity edema. Chest: Exam shows somewhat reduced breath sounds diffusely that seems consistent with his previous exam. Abdomen: Soft, nontender. No obvious organomegaly. PERTINENT DATA: He has no recent laboratory data other than a negative troponin. ASSESSMENT: Mr. Rea is a 66-year-old white male with a previous history of anterior myocardial infarction who presented in new onset atrial fibrillation and has since converted. PLAN: Resting myocardial perfusion imaging is pending today. I will add in Toprol at 25 mg daily, continue him on the digoxin for now. If the results show a large fixed anterior defect on his nuclear scan, then we would likely proceed with, hopefully, addition of an MIRA inhibitor as well as likely addition of anticoagulation as the patient's CHADS-VASc score is significantly elevated. cc: MD Juan Matson MD
[2017-03-06] MEDS: PROTONIX IV SCH ×2 (16:53→17:31)
--- NOTE | 2017-03-06 17:14 | Diag Imaging Result Document ---
PROCEDURE NAME: MYOCARDIAL PERFU SCAN, REST - 03/06/2017 STUDY: Resting gated myocardial perfusion study. REQUESTING PHYSICIAN: Jori Bernstein MD REASON FOR STUDY: Patient with myocardial infarction. DESCRIPTION: The patient was injected with technetium 99 sestamibi 30.9 millicuries. Multiple tomographic views of the cardiac structure were obtained at rest. SUMMARY OF FINDINGS: Resting gated view of the left ventricle showed a severe extensive mid to apical anterior wall defect. This is very severe. There is also a moderate septal defect. The polar plot reveals the same. There is suggestion of an extensive anteroapical scar. Gated SPECT shows moderate increased ventricular volumes with apical anterior akinesis. The lung-heart ratio is abnormal suggesting diastolic dysfunction/pulmonary congestion. IMPRESSION: In summary, this resting gated study shows the presence of a severe anteroapical defect probably indicating a scar with moderate LV dysfunction. Ejection fraction 39% with anteroapical akinesis. This study is consistent with infarction within the territory of the LAD. cc: MD Hannah Soler PA MTDD
[2017-03-06] MEDS: SPIRIVA INH SCH (18:57)
[2017-03-07] MEDS: SOLU-MEDROL IV SCH ×3 (00:11→16:59)
[2017-03-07] MEDS: LEVAQUIN 750 MG/D5W 750 MG/150 ML IVPB IV SCH (00:12)
[2017-03-07] MEDS: LOVENOX SUBQ SCH (00:12)
--- NOTE | 2017-03-07 03:30 | PROGRESS NOTE ---
DATE: 03/06/2017 SUBJECTIVE: The patient is doing well. Still coughing and wheezing. Trouble swallowing with solids and reviewed the reports from [facility]. Basically admitted for COPD exacerbation. Patient remains in sinus, sitting out of the bed with intermittent coughing and shortness of breath. REVIEW OF SYSTEMS: None reported. OBJECTIVE: Vital Signs: On examination, he is afebrile. Temperature is 98 degrees, pulse is 20, blood pressure is 103/63 on 4 L nasal cannula at 96%. I/O's are -1800. HEENT: Atraumatic, normocephalic. Pupils equal, reactive to light. TMs are normal. Nose and throat within normal limits. Neck: Supple. No lymphadenopathy. Chest: Bilateral wheezing. Heart: Sounds are very distant. Abdomen: Belly is soft, nontender. Good bowel sounds. No masses palpable. No peripheral edema, cyanosis. No obvious neurological deficits. INVESTIGATIONS: He is scheduled for Lexiscan resting scan. Cardiac enzymes were negative. Sputum cultures are pending. ASSESSMENT AND PLAN: 1. Paroxysmal atrial fibrillation. Currently in sinus. 2. Chronic obstructive pulmonary disease exacerbation. Continue on Levaquin, steroids, ceftriaxone, bronchodilators. 3. Ischemic cardiomyopathy. 4. Stent in the left anterior descending. Ejection fraction less than 40%. Going for Lexiscan. We will discuss with Dr. Gracia about the plans. Currently he is on digitalis, metoprolol. Also consider using low dose of MIRA inhibitor and also will assess the CHADS2 VASc score for anticoagulation. 5. History of noncompliance. LEVEL OF DOCUMENTATION: Twenty-five minutes. cc: Juan Zepeda MD
[2017-03-07] MEDS: BREO ELLIPTA 100/25 MCG INH INH SCH (08:18)
[2017-03-07] MEDS ORDERED: PRINIVIL PO SCH (09:00)
[2017-03-07] MEDS: TOPROL XL PO SCH (09:04)
[2017-03-07] MEDS: LANOXIN PO SCH (09:04)
[2017-03-07] MEDS: SINGULAIR PO SCH (09:05)
[2017-03-07] MEDS: ROCEPHIN 1 GM in NS 50 ML IV SCH (09:05)
[2017-03-07] MEDS: DUONEB (A & A) INH PRN ×4 (11:10→23:14)
[2017-03-07] MEDS: PROTONIX IV SCH (19:37)
[2017-03-07] MEDS: SODIUM CHLORIDE 0.9% INJ SCH (19:37)
--- NOTE | 2017-03-07 21:39 | CONSULTATION ---
DATE OF CONSULTATION: 03/07/2017 REASON FOR CONSULTATION: Dysphagia. HISTORY OF PRESENT ILLNESS: Mr. Rea is a 66-year-old male who was admitted on 03/04/2017 for shortness of breath. Prior to his admission he was at [facility] for 3-4 days and was treated for COPD exacerbation. After discharge he felt worsening shortness of breath and was readmitted to [facility]. He has a known history of COPD and has been a lifelong smoker. Has history of coronary artery disease, status post 2 or 3 stents in 2011. He has currently been undergoing a workup per the cardiology team. He was noted to be in atrial fibrillation with RVR and he has now been rate controlled after cardioversion and being monitored by Dr. John Gracia. While in the hospital he complained of trouble swallowing going on for the last 9 months. The food appears to be stuck in the lower chest area and he is drinking a lot of fluid to help push it down. He has never had an EGD in the past. PAST MEDICAL HISTORY: COPD, coronary artery disease, coronary stents, hyperlipidemia, hypertension. PAST SURGICAL HISTORY: Coronary stents. FAMILY HISTORY: Noncontributory. SOCIAL HISTORY: Lifelong smoker. He has tried to cut down and smokes 1-2 cigarettes a day. He denies any alcohol or illicit drug abuse. ALLERGIES: No known drug allergies. MEDICATIONS: In the hospital: Tylenol, albuterol/ipratropium, benzocaine, menthol mouthwash, digoxin, dopamine, Lovenox, fluticasone/vilanterol 1 puff inhaled daily, guaifenesin/codeine 10 mL every 4 6 hours, Levaquin 750 mg IV once daily, lisinopril 10 mg once daily, methylprednisolone 40 mg IV q.8 hours, metoprolol 25 mg IV daily, montelukast 10 mg once daily, Protonix 40 mg IV q.12 hours, ceftriaxone 1 g IV once daily, tiotropium bromide 1 puff inhaled at bedtime. DIET: He is currently on a heart healthy diet. REVIEW OF SYSTEMS: Denies any current fevers, rigors, chills. He denies any chest pain. He does complain of shortness of breath and coughing and wheezing. He has a known history of COPD. He denies any vomiting blood or passing blood in the stools. He does have constipation and bloating sensation. He has arthritis. Denies any neurologic complaints. PHYSICAL EXAMINATION: Vital signs: Temperature 98.4 degrees, pulse of 85, respiratory rate of 22, blood pressure 113/69, saturating 97% on 4 L nasal cannula. Body weight of 160 pounds 8 ounces. BMI 25.9 kg/m2. General Appearance: Moderately built, moderately nourished, lying in bed, in no acute distress. HEENT: No pallor. No icterus. Pupils equal, react to light. Neck: Supple. Abdomen: Protuberant. Mild distention noted. No guarding or rebound. Extremities: No cyanosis, clubbing. Neurologic: Alert, awake, oriented. LAB: Hemoglobin and hematocrit are 13.3 and 39.6, white count of 19.12, platelet count of 282,000, MCV of 84.8. INR 1.24, PT of 13.2. PH of 7.46, pCO2 36, PO2 116, bicarb of 26.5; this is on 4 L nasal cannula. Sodium 136, potassium 4.1, chloride 103, bicarb 21, anion gap of 12, BUN of 13, creatinine 0.6, glucose of 111, calcium is 8.6, total bilirubin is 0.45, AST 18, ALT 18, alkaline phosphatase 52, total protein. 5.9. IMPRESSIONS: 1. Dysphagia. 2. Chronic obstructive pulmonary disease exacerbation. 3. Atrial fibrillation with rapid ventricular response. 4. Abdominal bloating. RECOMMENDATIONS: 1. We will continue the patient on Protonix IV b.i.d. We will make him NPO past midnight and we will schedule him for an EGD tomorrow under anesthesia for evaluation of dysphagia symptoms. Again the patient was counseled to quit smoking completely. The patient will take small frequent meals after discharge and also recommend that the patient chew the food very well. 2. Patient has abdominal bloating. I suspect he could have constipation. We will given him a bowel regimen. 3. Because of his underlying medical comorbid conditions like COPD and cardiac history, he is at a higher surgical risk for any kind of procedure including EGD. I discussed that with the patient and all questions answered. cc: MD Jarvis Matson MD Jagan Reddy, MD
[2017-03-07] MEDS: SPIRIVA INH SCH (21:46)
--- NOTE | 2017-03-07 21:48 | PROGRESS NOTE ---
DATE: 03/07/2017 SUBJECTIVE: The patient is in ICU. Complains of intermittent dysphagia. REVIEW OF SYSTEMS: No chest pain, intermittent shortness of breath, productive cough. PHYSICAL EXAMINATION: Vital signs: Afebrile. Blood pressure is 90/58, pulse is 85, 4 L nasal cannula 96%. HEENT: Within normal limits. Neck: Supple. Chest: Scattered wheezing. Heart: Distant heart sounds. Abdomen: Belly is soft, nontender. Good bowel sounds. Neurologic: No neurological deficits. INVESTIGATIONS: None reported. ASSESSMENT AND PLAN: 1. Paroxysmal atrial fibrillation. Stable. Status post cardioversion. 2. Ischemic cardiomyopathy, ejection fraction 40%. Anterior wall ischemia. Low dose of Toprol 25 mg daily, lisinopril 2.5 mg daily. Anticoagulation with Eliquis, on Xarelto. 3. Intermittent dysphagia. Discussed with Dr. Reyna. Planning for EGD. LEVEL OF DOCUMENTATION: 25 minutes. cc: Juan Zepeda MD
[2017-03-08] MEDS: LEVAQUIN 750 MG/D5W 750 MG/150 ML IVPB IV SCH (00:20)
[2017-03-08] MEDS: LOVENOX SUBQ SCH (00:20)
[2017-03-08] MEDS: SOLU-MEDROL IV SCH ×3 (00:20→15:31)
[2017-03-08] MEDS: DUONEB (A & A) INH PRN ×3 (03:45→20:28)
[2017-03-08] MEDS: ROCEPHIN 1 GM in NS 50 ML IV SCH (07:59)
[2017-03-08] MEDS: SODIUM CHLORIDE 0.9% INJ SCH (07:59)
[2017-03-08] MEDS: PROTONIX IV SCH ×2 (07:59→20:45)
[2017-03-08] MEDS: BREO ELLIPTA 100/25 MCG INH INH SCH (08:10)
[2017-03-08] MEDS ORDERED: DIPRIVAN 1% ONE ×2 (11:49→13:04)
[2017-03-08] MEDS ORDERED: XYLOCAINE-MPF 2% ONE ×2 (11:50→12:36)
[2017-03-08] MEDS ORDERED: AMIDATE ONE (11:58)
[2017-03-08] MEDS: SINGULAIR PO SCH (12:44)
[2017-03-08] MEDS: TOPROL XL PO SCH (12:44)
[2017-03-08] MEDS: PRINIVIL PO SCH (12:45)
[2017-03-08] MEDS: LANOXIN PO SCH (12:45)
[2017-03-08] MEDS ORDERED: DIFLUCAN PO SCH (13:00)
[2017-03-08] MEDS ORDERED: MYCOSTATIN SUSP PO SCH (16:00)
--- NOTE | 2017-03-08 16:14 | PROGRESS NOTE ---
DATE: 03/08/2017 SUBJECTIVE: Mr. Rea did well today. He apparently underwent EGD as well as esophageal dilatation. PHYSICAL EXAMINATION: Vital signs: He is afebrile. Heart rate in the 70s to 80s. Blood pressure 97/67. Telemetry currently shows he is in sinus rhythm. General: No acute distress. Cardiovascular: He is in a regular rate and rhythm. He has no murmurs. He has no S3. He has no lower extremity edema. Chest: Clear to auscultation bilaterally. He has no increased work of breathing. Abdomen: Soft, nontender. PERTINENT DATA: He has no recent chemistry data today. ASSESSMENT: Atrial fibrillation. PLAN: Patient has an elevated [id number]-CJMp score. He would be a candidate for anticoagulation. I would recommend Pradaxa [address] an order for this medication to be started with discontinuation of Lovenox if okay with Dr. Maguire based on the EGD results today. Please contact us if we can be of further assistance with the patient. cc: MD Juan Matson MD
--- NOTE | 2017-03-08 16:46 | OPERATIVE NOTE ---
PROCEDURE DATE: 03/08/2017 PROCEDURE: 1. Esophagogastroduodenoscopy with biopsy. 2. Esophageal dilation with Maloneys. DESCRIPTION OF PROCEDURE: After informed consent and adequate intravenous sedation by Anesthesia, the scope introduced to the esophagus. The patient has extensive oral and esophageal candidiasis. The patient also has a hiatal hernia and reflux related stricture. Stomach itself is normal. Biopsy of the EG junction was obtained. At this point, esophageal dilation was done up to 56- Mosotho. Patient tolerated the procedure without any immediate complications. RECOMMENDATION: Because of the severity in nature we will use both nystatin and fluconazole tablets. We will follow. cc: MD Juan Hernandez MD
--- NOTE | 2017-03-08 17:35 | PROGRESS NOTE ---
DATE: 03/08/2017 SUBJECTIVE: The patient has been NPO waiting for endoscopy. REVIEW OF SYSTEMS: None reported. OBJECTIVE: Vital signs: Afebrile. Vitals are stable on 4 L nasal cannula. HEENT: Within normal limits. Neck: Supple. Chest: Clear to auscultation. Heart: Sounds are regular. Abdomen: Belly is soft, nontender. Good bowel sounds. Neurologic: No neurological deficits. INVESTIGATIONS: None reported. ASSESSMENT: 1. Dysphagia, waiting for endoscopy by Dr. Maguire. 2. COPD on bronchodilators, IV Levaquin, IV steroids and ceftriaxone. 3. Ischemic cardiomyopathy with paroxysmal atrial fibrillation. PLAN: 1. Pradaxa 150 p.o. b.i.d. 2. Low dose of his MIRA inhibitors and low dose of beta blockers. 3. After the endoscopy, he will be transferred out of the ICU to the step-down. Please see the transfer order sheets. LEVEL OF DOCUMENTATION: 25 minutes. cc: Juan Zepeda MD
[2017-03-08] MEDS: SPIRIVA INH SCH (20:29)
[2017-03-09] MEDS: SOLU-MEDROL IV SCH ×4 (01:49→22:16)
[2017-03-09] MEDS: LEVAQUIN 750 MG/D5W 750 MG/150 ML IVPB IV SCH (01:49)
[2017-03-09] MEDS: DUONEB (A & A) INH PRN ×3 (03:47→11:44)
[2017-03-09] MEDS: BREO ELLIPTA 100/25 MCG INH INH SCH (08:01)
[2017-03-09] MEDS: SODIUM CHLORIDE 0.9% INJ SCH ×2 (08:08→22:18)
[2017-03-09] MEDS: PROTONIX IV SCH ×2 (08:08→22:18)
[2017-03-09] MEDS: PRADAXA PO SCH ×2 (08:09→22:13)
[2017-03-09] MEDS: PRINIVIL PO SCH (08:09)
[2017-03-09] MEDS: ROCEPHIN 1 GM in NS 50 ML IV SCH (08:09)
[2017-03-09] MEDS: SINGULAIR PO SCH (08:10)
[2017-03-09] MEDS: TOPROL XL PO SCH (08:10)
[2017-03-09] MEDS: LANOXIN PO SCH (08:10)
[2017-03-09] MEDS: MYCELEX TROCHE PO SCH ×2 (13:10→22:13)
--- NOTE | 2017-03-09 13:30 | PROGRESS NOTE ---
DATE: 03/09/2017 SUBJECTIVE: The patient was moved out of the ICU to the step-down after the endoscopy. The patient had an endoscopy done by Dr. Maguire. It has been reported the patient has some Candidiasis, hiatal hernia, stricture and, is dilated. REVIEW OF SYSTEMS: None reported. Anxious to go home tomorrow. PHYSICAL EXAMINATION: Vital signs are stable. HEENT within normal limits. Chest is clear. Heart sounds are regular. Belly is soft, nontender. Good bowel sounds. Neurologic deficits. ASSESSMENT AND PLAN: 1. Chronic obstructive pulmonary disease, on ceftriaxone, IV steroids, Levaquin, bronchodilators. 2. Ischemic cardiomyopathy. Paroxysmal atrial fibrillation, on Pradaxa, Lanoxin and low dose of lisinopril and metoprolol 25 daily. 3. Dysphagia due to hiatal hernia with esophagitis and stricture, status post dilatation with Candidiasis, on Diflucan, clotrimazole, along with Prilosec. LEVEL OF DOCUMENTATION: 25 minutes. cc: Juan Zepeda MD
[2017-03-09] MEDS: SPIRIVA INH SCH (21:53)
[2017-03-10] MEDS: SOLU-MEDROL IV SCH ×2 (00:10→08:10)
[2017-03-10] MEDS: MYCELEX TROCHE PO SCH ×2 (02:25→08:10)
[2017-03-10] MEDS: LEVAQUIN 750 MG/D5W 750 MG/150 ML IVPB IV SCH (02:25)
[2017-03-10] MEDS: DUONEB (A & A) INH PRN ×3 (02:54→11:15)
[2017-03-10] MEDS: PRADAXA PO SCH (08:09)
[2017-03-10] MEDS: SINGULAIR PO SCH (08:09)
[2017-03-10] MEDS: PROTONIX IV SCH (08:10)
[2017-03-10] MEDS: SODIUM CHLORIDE 0.9% INJ SCH (08:10)
[2017-03-10] MEDS: LANOXIN PO SCH (08:10)
[2017-03-10] MEDS: TOPROL XL PO SCH (08:10)
[2017-03-10] MEDS: PRINIVIL PO SCH (08:10)
[2017-03-10] MEDS: ROCEPHIN 1 GM in NS 50 ML IV SCH (08:11)
[2017-03-10] MEDS: BREO ELLIPTA 100/25 MCG INH INH SCH (08:12)
[2017-03-10] MEDS ORDERED: DIFLUCAN PO SCH (09:00)
[2017-03-10 11:24] VITALS: BP 106/60
--- NOTE | 2017-03-10 18:41 | DISCHARGE SUMMARY ---
ADMISSION DATE: 03/04/2017 DISCHARGE DATE: 03/10/2017 DISCHARGE DIAGNOSES: 1. Paroxysmal atrial fibrillation, status post cardioversion. 2. Ischemic cardiomyopathy. Occluded left anterior descending with anterior wall hypokinesis, ejection fraction 30%. 3. End-stage chronic obstructive pulmonary disease. 4. Intermittent dysphagia due to hiatal hernia, esophagitis with stricture dilated by 56-Korean complicated by diffuse candidiasis. 5. Noncompliance. CONSULTANTS: 1. Dr. Gracia. 2. Dr. Maguire. PROCEDURES: 1. Myocardial perfusion resting scan: Ejection fraction is about 40%. A scar in the anterior wall, moderate LV systolic dysfunction consistent with previous infarction in the territory of LAD. 2. EGD findings are a hiatal hernia, esophagitis status post dilatation with a 56-Korean with significant candidiasis. 3. Echocardiography findings are anterior septal dyskinesia with LV systolic function reduced to 35-40%. 4. Pulmonary hypertension 48 mmHg. BRIEF HISTORY: Please see the H and P that was done by hospitalist. In brief, he is a 66-year- old, white male with severe COPD and CAD, noncompliant. Was recently admitted at [facility] for COPD and came in with shortness of breath and palpitations. He was in rapid atrial fibrillation and converted spontaneously with Cardizem. Admitted in ICU. HOSPITAL COURSE: 1. Paroxysmal atrial fibrillation. Normal thyroid function tests. Echo showed hypokinesis of the anterior wall at the LAD distribution. EF about 35-40%. Lexiscan scan showed infarction of the anterior wall with EF 35-40%. Dr. Gracia relegated to medical management which includes Lanoxin, Toprol, MIRA inhibitors and Pradaxa. He is at high risk for having strokes. 2. COPD and coughing. He was given oxygen, bronchodilators, and IV steroids. Improving. 3. Intermittent dysphagia. GI consult was obtained with above findings, significant candidiasis and hiatal hernia with stricture dilated. Biopsy was done and results are pending. The patient was anxious to go home. 4. At the time of discharge, his labs as follows: CBC with white cell count 19, hematocrit 39, platelets 282,000, PT 13, INR 1.2. ABG pH is 7.46, pCO2 36, PO2 116 on 36%. SMA 7: Sodium 136, potassium 4, chloride 103, BUN 13, creatinine 0.6, glucose 111. LFTs were normal. Cardiac enzymes were normal. Sputum cultures: Positive yeast infection. Chest x-ray: COPD changes. DISPOSITION: The patient was discharged home in a stable condition with the following instructions. Pneumococcal vaccine was up-to-date, it was given 08/24/2016. Ventolin HFA q 6 hours for rescue inhaler, Singular 10 mg daily, Prilosec 40 daily, albuterol Atrovent of q. 4 hours as needed along with the budesonide twice daily, Lanoxin 125 mcg daily, Diflucan 100 daily for 10 days, Breo 1 puff daily, lisinopril 2.5 daily, metoprolol 25 daily, Mycelex troches 10 mg q. 6, Pradaxa 150 p.o. b.i.d., Spiriva 1 capsule inhalation daily. Follow up in my office next week. cc: MD Carlos Marlow MD Dr. Johnson
== END 2017-03-10 13:35 | disposition home or self-care (01) ==
LOC: ED 20:28 → ICU 03-04 00:06 → SUPCPDRO 03-04 00:06 → SUATTDRO 03-04 00:06 → ICU 03-04 01:45 → 3S 03-08 18:37
PROVIDERS: ADMIT Internal Medicine; ATTEND Internal Medicine